=== PATIENT | female | born 1960 | race Caucasian/White ===

== ENCOUNTER → 2016-07-02 | Outpatient (CLI) | payer BC ==
[~2016-07-02] MED LIST: AMARYL2 MG PO; CYCLOBENZAPRINE10 MG PO; CYMBALTA60 MG PO; DILAUDID 2MG(HYD2 MG PO; ELAVIL25 MG PO; GLUCOPHAGE1000 MG PO; NEURONTIN300 MG PO; PERCOCET 5-3251 EACH PO; REQUIP2 MG PO; ROPINIROLE HCL1 MG PO; ROPINIROLE HCL2 MG PO; VOLTAREN75 MG PO; ZOFRAN4 MG PO
== END ==
LOC: GRAD 08:00
DX: M51.16 Intervertebral disc disorders with radiculopathy, lumbar region (principal)